=== PATIENT | male | born 1985 | race Caucasian/White ===

== ENCOUNTER → 2019-09-07 | Outpatient (REF) | payer OTHER ==
[2019-09-07 18:49] LABS: INFLUENZA A AMPLIFICATION NEGATIVE (NEGATIVE); INFLUENZA B AMPLIFICATION NEGATIVE (NEGATIVE)
== END ==
LOC: M LAB REF 18:01
PROVIDERS: ATTEND Physician Assistant Medical
DX: J01.10 Acute frontal sinusitis, unspecified (principal); B34.9 Viral infection, unspecified; J02.9 Acute pharyngitis, unspecified

== ENCOUNTER → 2022-05-17 | Outpatient (CLI) | payer OTHER ==
[~2022-05-17] MED LIST: GASTROGRAFIN SOLUTION 30ML As Ordered ONE; ISOVUE-370 76% 100ML VIAL As Ordered ONE
== END ==
LOC: M RAD 16:14
PROVIDERS: ATTEND Registered Nurse
DX: R10.84 Generalized abdominal pain (principal); R19.4 Change in bowel habit

== ENCOUNTER → 2022-06-01 | Outpatient (CLI) | payer OTHER | LOC: M WUC 13:00 | PROVIDERS: ATTEND Registered Nurse | DX: R05.9 Cough, unspecified (principal) ==

== ENCOUNTER → 2022-07-14 | Outpatient (CLI) | payer OTHER ==
[~2022-07-14] MED LIST changes: -GASTROGRAFIN SOLUTION 30ML As Ordered ONE
== END ==
LOC: M RAD 08:03
PROVIDERS: ATTEND Registered Nurse
DX: R91.1 Solitary pulmonary nodule (principal)

== ENCOUNTER → 2022-07-24 | Outpatient (REF) | payer OTHER | LOC: M LAB REF 16:21 | PROVIDERS: ATTEND Internal Medicine | DX: J18.0 Bronchopneumonia, unspecified organism (principal) ==

== ENCOUNTER → 2022-07-26 | Outpatient (REF) | payer OTHER | LOC: M LAB REF 16:52 | PROVIDERS: ATTEND Internal Medicine | DX: J18.0 Bronchopneumonia, unspecified organism (principal) ==

== ENCOUNTER → 2022-08-13 | Outpatient (CLI) | payer OTHER | LOC: M LABSMTC 09:21 | PROVIDERS: ATTEND Anesthesiology | DX: Z20.822 Contact with and (suspected) exposure to COVID-19 (principal) ==

== ENCOUNTER → 2022-08-14 | Outpatient (CLI) | payer OTHER ==
[2022-08-14 15:56] LABS: BASO % 0.3 % (0.0-1.0); EOS # 0.3 10^3/uL (0.0-0.5); EOS % 5.1 % (0.0-3.0); HEMATOCRIT 49.1 % (42.0-52.0); HEMOGLOBIN 15.9 g/dl (13.5-17.5); LYMPH # 1.2 10^3/uL (1.5-5.0); LYMPH % 21.1 % (24.0-44.0); MEAN CORPUSCULAR HEMOGLOBIN 29.4 pg (27.0-33.0); MEAN CORPUSCULAR HGB CONC 32.4 g/dl (32.0-36.5); MEAN CORPUSCULAR VOLUME 90.9 fl (80.0-96.0); MONO # 0.8 10^3/uL (0.0-0.8); MONO % 12.9 % (2.0-8.0); NEUTROPHILS # 3.5 10^3/uL (1.5-8.5); NEUTROPHILS % 60.3 % (36.0-66.0); PLATELET COUNT, AUTOMATED 188 10^3/uL (150-450); WHITE BLOOD COUNT 5.8 10^3/uL (4.0-10.0)
[2022-08-14 16:21] LABS: ALBUMIN 3.8 G/DL (3.2-5.2); ALKALINE PHOSPHATASE 77 U/L (46-116); ALT/SGPT 33 U/L (7.0-40); AST/SGOT 23 U/L (<34); BILIRUBIN,DIRECT 0.2 MG/DL (<0.4); BILIRUBIN,TOTAL 0.4 MG/DL (0.3-1.2); CALCIUM LEVEL 9.1 MG/DL (8.5-10.1); CREATININE FOR GFR 1.01 MG/DL (0.70-1.30); GLOMERULAR FILTRATION RATE > 60.0 (>60); TOTAL PROTEIN 6.9 G/DL (5.7-8.2)
== END ==
LOC: M PLALAB 13:46
PROVIDERS: ATTEND Internal Medicine Pulmonary Disease
DX: R91.8 Other nonspecific abnormal finding of lung field (principal)

== ENCOUNTER 2022-08-15 09:05 | Day surgery (SDC) | payer OTHER ==
[~2022-08-15] VITALS: Ht 185.4 cm; Wt 119.3 kg
[2022-08-15] MEDS ORDERED: LR 1,000 ML IV SCH ×2 (09:30→12:00)
[2022-08-15] MEDS ORDERED: ROCURONIUM BROMIDE 50MG/5ML VIAL As Ordered ONE (09:59)
[2022-08-15] MEDS ORDERED: ONDANSETRON 4MG 2ML VIAL As Ordered ONE (09:59)
[2022-08-15] MEDS ORDERED: propofoL 200 MG/20 ML VIAL As Ordered ONE ×2 (09:59→11:30)
[2022-08-15] MEDS ORDERED: LIDOCAINE 2% 100MG/5ML SDV (FOR ANES.) As Ordered ONE (09:59)
[2022-08-15] MEDS ORDERED: fentaNYL 100 MCG/2 ML INJECTION As Ordered ONE ×2 (09:59→11:38)
[2022-08-15] MEDS ORDERED: MIDAZOLAM INJ 2MG/2ML VIAL As Ordered ONE (10:00)
[2022-08-15] MEDS ORDERED: EPINEPHrine 1MG/10ML SYRINGE 1.5IN As Ordered ONE (10:57)
[2022-08-15] MEDS ORDERED: CETACAINE SPRAY 5GM As Ordered ONE (10:57)
[2022-08-15] MEDS ORDERED: ACETAMINOPHEN 1000MG 100ML IV BAG As Ordered ONE (11:27)
[2022-08-15] MEDS ORDERED: SUGAMMADEX SODIUM 500 MG/5 ML VIAL (BRIDION) As Ordered ONE (11:31)
[2022-08-15] MEDS ORDERED: oxyCODONE 5MG TAB PO PRN (12:00)
[2022-08-15] MEDS ORDERED: HYDROMORPHONE HCL 0.5 MG/ 0.5 ML SYRINGE IV PRN (12:00)
[2022-08-15] MEDS ORDERED: fentaNYL 100 MCG/2 ML INJECTION IV PRN (12:00)
[2022-08-15] MEDS ORDERED: ONDANSETRON 4MG 2ML VIAL IV PRN (12:00)
[2022-08-15 13:06] VITALS: BP 126/68
== END 2022-08-15 13:15 | disposition home or self-care (01) ==
LOC: M SDC 09:05
PROVIDERS: ATTEND Internal Medicine Pulmonary Disease
DX: R59.0 Localized enlarged lymph nodes (principal)
CPT/HCPCS: 31629; 31653; 71045; 88173; 88305; J0131; J1100; J2250; J2405; J3010

== ENCOUNTER → 2022-10-10 | Outpatient (CLI) | payer OTHER ==
[~2022-10-10] MED LIST changes: -ISOVUE-370 76% 100ML VIAL As Ordered ONE; +METHACHOLINE KIT INH ONE
== END ==
LOC: M CARPUL 14:42
PROVIDERS: ATTEND Internal Medicine Pulmonary Disease
DX: D86.2 Sarcoidosis of lung with sarcoidosis of lymph nodes (principal)
CPT/HCPCS: 94070; J7674

== ENCOUNTER → 2022-10-25 | Outpatient (CLI) | payer OTHER | LOC: M PLAIMG 11:07 | PROVIDERS: ATTEND Internal Medicine Pulmonary Disease | DX: R91.8 Other nonspecific abnormal finding of lung field (principal) ==

== ENCOUNTER 2022-12-27 10:54 | Day surgery (SDC) | payer OTHER ==
[~2022-12-27] VITALS: Ht 185.4 cm; Wt 116.3 kg
[~2022-12-27 10:54] MED LIST changes: -METHACHOLINE KIT INH ONE; +NS 1,000 ML IV ONE
[2022-12-27] MEDS ORDERED: propofoL 200 MG/20 ML VIAL As Ordered ONE ×3 (12:42→12:54)
[2022-12-27 13:03] VITALS: TEMP 96.7
[2022-12-27 13:20] VITALS: BP 114/59; O2SAT 96
== END 2022-12-27 13:30 | disposition home or self-care (01) ==
LOC: M OPP 10:54
PROVIDERS: ATTEND Internal Medicine Gastroenterology
DX: K63.5 Polyp of colon (principal); K62.5 Hemorrhage of anus and rectum; K64.0 First degree hemorrhoids; K59.04 Chronic idiopathic constipation

== ENCOUNTER → 2023-01-24 | Emergency (ER) | payer OTHER ==
[~2023-01-24] VITALS: Ht 185.4 cm; Wt 116.3 kg
[2023-01-24 14:06] VITALS: BP 121/76; TEMP 98.2; O2SAT 96
== END | disposition left against medical advice (07) ==
LOC: M ED 14:05
DX: Z53.21 Procedure and treatment not carried out due to patient leaving prior to being seen by health care provider (principal)

== ENCOUNTER 2023-02-23 11:34 | Emergency (ER) | payer OTHER ==
[~2023-02-23] VITALS: Ht 185.4 cm; Wt 116.3 kg
[2023-02-23] MEDS ORDERED: DOXY-443 PO (14:24)
[2023-02-23 15:17] VITALS: BP 127/60; TEMP 97.9; O2SAT 97
== END 2023-02-23 15:15 | disposition home or self-care (01) ==
LOC: M ED 11:34
DX: L03.012 Cellulitis of left finger (principal)

== ENCOUNTER → 2023-07-17 | Outpatient (CLI) | payer OTHER ==
[~2023-07-17] MED LIST changes: +DOXY-443 PO; -NS 1,000 ML IV ONE
== END ==
LOC: M RAD 15:00
PROVIDERS: ATTEND Internal Medicine Pulmonary Disease
DX: R91.8 Other nonspecific abnormal finding of lung field (principal); J47.9 Bronchiectasis, uncomplicated; J84.10 Pulmonary fibrosis, unspecified; R59.0 Localized enlarged lymph nodes; N28.1 Cyst of kidney, acquired

== ENCOUNTER → 2023-11-05 | Outpatient (CLI) | payer OTHER ==
[~2023-11-05] MED LIST changes: +DOXY-323 PO; -DOXY-443 PO
== END ==
LOC: M RAD 13:07
PROVIDERS: ATTEND Nurse Practitioner Family
DX: N50.812 Left testicular pain (principal)

== ENCOUNTER 2024-02-24 10:41 | Emergency (ER) | payer OTHER ==
[~2024-02-24] VITALS: Ht 185.4 cm; Wt 116.7 kg
[2024-02-24 12:33] VITALS: BP 134/85; TEMP 97.4; O2SAT 98
== END 2024-02-24 12:40 | disposition home or self-care (01) ==
LOC: M ED 10:41
DX: M25.511 Pain in right shoulder (principal); W10.8XXA Fall (on) (from) other stairs and steps, initial encounter; F12.10 Cannabis abuse, uncomplicated; Y92.009 Unspecified place in unspecified non-institutional (private) residence as the place of occurrence of the external cause; Y93.89 Activity, other specified; Y99.9 Unspecified external cause status

== ENCOUNTER → 2024-08-01 | Outpatient (CLI) | payer OTHER ==
[~2024-08-01] MED LIST changes: -DOXY-323 PO; +DOXY-441 PO
== END ==
LOC: M RAD 15:30
PROVIDERS: ATTEND Internal Medicine Pulmonary Disease
DX: R91.8 Other nonspecific abnormal finding of lung field (principal)

== ENCOUNTER → 2025-03-03 | Outpatient (CLI) | payer OTHER ==
[~2025-03-03] MED LIST changes: +PROHANCE 279.3MG/ML 15ML VIAL As Ordered ONE; +PROHANCE 279.3MG/ML 5ML VIAL As Ordered ONE
== END ==
LOC: M RAD 07:28
PROVIDERS: ATTEND Physician Assistant Surgical
DX: M19.071 Primary osteoarthritis, right ankle and foot (principal); M25.571 Pain in right ankle and joints of right foot; M25.471 Effusion, right ankle; M85.471 Solitary bone cyst, right ankle and foot; R60.0 Localized edema
CPT/HCPCS: 73723; A9576